=== PATIENT | female | born 1980 | race Caucasian/White ===

== ENCOUNTER 2023-11-12 07:51 | Outpatient (CLI) | payer BC, SELFPAY ==
[2023-11-12 08:20] LABS: Basophils Absolute Auto 0.1 K/mm3 (0.0-0.1); Basophils Percent Auto 1.3 % (0.2-1.2); Eosinophils Absolute Auto 0.2 K/mm3 (0-0.3); Eosinophils Percent Auto 3.2 % (0-4.4); Hematocrit 44.3 % (37.0-47.0); Hemoglobin 14.1 g/dL (12.0-15.0); Immature Granulocyte Absolute 0.02 K/mm3 (0.00-0.031); Immature Granulocyte Percent A 0.3 % (0-0.5); Lymphocytes Absolute Auto 2.15 K/mm3 (0.9-3.2); Lymphocytes Percent Auto 34.1 % (18.3-44.2); Mean Corpuscular HGB Conc 31.8 g/dl (32-36); Mean Corpuscular Hemoglobin 29.6 pg (26-34); Mean Corpuscular Volume 93.1 fl (80-100); Mean Platelet Volume 9.6 fl (7.4-10.4); Monocytes Absolute Auto 0.5 K/mm3 (0.1-0.6); Monocytes Percent Auto 7.1 % (2.6-8.5); Neutrophils Absolute Auto 3.4 K/mm3 (1.3-6.7); Platelet Count Result 232 k/mm3 (150-375); Red Blood Count 4.76 M/mm3 (4.2-5.4); Red Cell Distribution Width 12.8 % (11.5-14.5); White Blood Count 6.3 K/mm3 (4.5-10.0)
[2023-11-12 08:38] LABS: Anion Gap 4 mmol/L (4-12); Blood Urea Nitrogen 13 mg/dL (7-17); Calcium 9.1 mg/dL (8.4-10.2); Carbon Dioxide 30 mmol/L (22-30); Chloride 105 mmol/L (98-107); Cholesterol 250 mg/dL (0-200); Estimated Glomerular Filt Rate > 60; Glucose 98 mg/dL (65-110); HDL Direct 54 mg/dL; Sodium 139 mmol/L (137-145); Triglycerides 193 mg/dL (<150)
[2023-11-12 08:52] LABS: LDL Cholesterol Direct 158 mg/dL
== END 2023-11-12 07:52 | disposition home or self-care (01) ==
PROVIDERS: PCP Nurse Practitioner Family; Visit Provider Nurse Practitioner Family
DX: Z00.00 Encounter for general adult medical examination without abnormal findings (principal); D64.9 Anemia, unspecified; G43.909 Migraine, unspecified, not intractable, without status migrainosus; J45.909 Unspecified asthma, uncomplicated
CPT/HCPCS: 36415; 80048; 80061; 84443; 85025

== ENCOUNTER 2024-12-22 07:06 | Outpatient (CLI) | payer BC, SELFPAY ==
--- OUTSIDE RECORDS SUMMARY | 2024-12-22 07:09 | XMS_ITS | Encounter Summary ---
Author Organization [facility] Healthcare Address [address] [place] [address] Care Team Providers Care Sanitarian Aide Name Role Phone Magdalena Jay HOP PICKER Primary Care Provider [phone] Encounter Details Date Type Department Care Team (Late st Contact Info) Description 03/26/2024 Orders Only [facility] [place] [address] [place] [id number] Alex Null MD [address] [facility] [address] [address] Social History Tobacco Use Types Packs/Day Years Used Date Smoking Tobacco: Never Alcohol Use Standard Drinks/Week Comments Yes 0 (1 standard drink = 0.6 oz pur e alcohol) AUDIT-C Answer Date Recorded Frequency of Alcohol Consumption Monthly or less 2020 Average Number of Drinks 1 or 2 020 Frequency of Binge Drinking Never 02/12 Personal Safety Answer Date Recorded Getting School Help Needed Not on file 06/30 Comments No Sex and Gender Information Value Date Recorded Sex Assigned at Not on file 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 Gender Identity Not on file Sexual Orientation Not on file documented as of this encounter Plan of Treatment Not on file documented as of this encounter Procedures Procedure Name Priority Date/Time Associated Diagnosis Comments SCAN - RADIOLOGY/IMAGING 03/26/2024 documented in this encounter Results * SCAN - RADIOLOGY/IMAGING (03/26/2024) Anatomical Region Laterality Modality Other Alex Null MD Final R esult documented in this encounter Visit Diagnoses Not on filedocumented in this encounter Care Teams Sanitarian Aide Relationship Specialty Start Date End Date Magdalena Jay, HOP PICKER [address] [place] [address] PCP - General Family Medicine 03/26/24 documented as of this encounter
--- OUTSIDE RECORDS SUMMARY | 2024-12-22 07:09 | XMS_ITS | Referral Summary ---
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 Gender Identity Not on file Sexual Orientation Not on file Last Filed Vital Signs Vital Sign Reading Time Taken Comments Blood Pressure 130/80 03/26/2024 12:48 PM CDT Pulse 92 06/17/2018 2:32 PM MANAGER BUSINESS Temperature 37.1 C (98.7 F) 06/17/2018 2:32 PM MANAGER BUSINESS Respiratory Rate - - Oxygen Saturation 97% 06/17/2018 2:32 PM MANAGER BUSINESS Inhaled Oxygen Concentration - - Weight 78.9 kg (174 lb) 03/26/2024 12:48 PM CDT Height 170.2 cm (5' 7) 03/26/2024 12:48 PM CDT Body Mass Index 27.25 03/26/2024 12:48 PM CDT Plan of Treatment Not on file Procedures Procedure Name Priority Date/Time Associated Diagnosis Comments HIGH RISK HPV DNA DETECTION WITH GENOTYPING Routine 03/26/2024 12:54 PM CDT Well woman exam from Last 3 Months or Most Recently Relevant to Health Maintenance Results * High Risk HPV DNA Detection with Genotyping (Molecular component) (03/26/2024 12:54 PM CDT) HPV HR 16 Not Detected Not Detected [facility] Comment:Testing performed by : [facility], [address] [place]., [address] HPV HR 18 Not Detected Not Detected [facility] Comment:Testing performed by : [facility], [address] [place]., [address] HPV HR Non 16/18 Not Detected Not Detected [facility] Comment: Interpretive Data Nucleic acid amplification for detection of high-risk Human Papilloma virus (HPV) is performed by the Sumit Thania 6800 HPV test. This assay specifically detects HPV-16 and HPV-18 genotypes. The following HPV genotypes are detected as high-risk HPV: HPV-31, 33, 35, ,39, 45, 51, 52, 56, 58, 59, 66, and 68. This assay has been approved by the [place] Food and Drug Administration for detection of HPV in cervical specimens collected by a physician using an endocervical brush/spatula or cervical broom and placed in the ThinPrep Pap Test PreservCyt collection containers. The performance characteristics of this test have been verified by the [facility] Molecular Infectious Disease laboratory. Correlate with separately reported cytology results, as applicable. Interpretive data last revised 22 Testing performed by: [facility], [address] [place] [address] Endocervical 03/26/2024 12:5 4 PM CDT 03/27/2024 9:08 AM CDT Narrative [facility] - 03/27/2024 8:01 PM CDT Clinical history and diagnosis->screen, hx of LEEP Number of vials->1 Testing type->Screening Last menstrual period (date if known)->03/26/24 Menstrual status->Regular Previous positive HPV history?->Yes Previous negative PAP?->Yes Alex Null MD LAB BODY FLUIDS AND STO OLS ORDERABLES Final Result [facility] [address] [facility] [place] [address] BJ from Last 3 Months or Most Recently Relevant to Health Maintenance Insurance [employer] [place] [employer] [place] Care Teams Tire Center Supervisor Relationship Specialty Start Date End Date Magdalena Jay, CATALINA [address] [place] [address] PCP - General Family Medicine 03/26/24
--- OUTSIDE RECORDS SUMMARY | 2024-12-22 07:09 | XMS_ITS | Clinical Summary ---
Author Organization [facility] Office Center Address [address] [place] [address] Care Team Providers Care Reinforcement Maker Name Role Phone Magdalena Jay NP Primary Care Provider [phone] [phone] Allergies No known active allergies Medications norethindrone ac-eth estradioL (Loestrin 07/02, ,) 1-20 mg-mcg per tabletIndication s:Menorrhagia Take 1 tablet by mouth daily 63 tablet 3 05/21/2024 5 Active Active Problems No known active problems Surgical History Surgery Date Site/Laterality Comments CERVICAL BIOPSY W/ LOOP ELEC TRODE EXCISION 06/13/2010 - 06/12/2011 TUBAL LIGATION ARM SURGERY WISDOM TOOTH EXTRACTION Medical History Medical History Date Comments Asthma History of abnormal cervical Pap smear H/O Leep 2010 Family History Medical History Relation Name Comments Pancreatic cancer Father Liver cancer Maternal Grandfather Heart attack Maternal Grandmother Hypothyroidism Mother Breast cancer Neg Hx Ovarian cancer Neg Hx Relation Name Status Comments Father Maternal Grandfather Maternal Grandmother Mother Social History Tobacco Use Types Packs/Day Years [...] on file 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 Gender Identity Not on file Sexual Orientation Not on file Obstetrics History Para Term AB IAB SAB Ectopic Multiple Livin g Live Births 2 2 Date Outcome GA Total Labor Labor/2nd/3rd Weight Sex Type Anes PTL Ailyn A1 A5 Name Clin Para Para Comments 05/29 Last Filed Vital Signs Vital Sign Reading Time Taken Comments Blood Pressure 130/80 03/26/2024 12:48 PM CDT Pulse 92 06/17/2018 2:32 PM MINE ENGINEER Temperature 37.1 C (98.7 F) 06/17/2018 2:32 PM MINE ENGINEER Respiratory Rate - - Oxygen Saturation 97% 06/17/2018 2:32 PM MINE ENGINEER Inhaled Oxygen Concentration - - Weight 78.9 kg (174 lb) 03/26/2024 12:48 PM CDT Height 170.2 cm (5' 7) 03/26/2024 12:48 PM CDT Body Mass Index 27.25 03/26/2024 12:48 PM CDT Plan of Treatment Health Maintenance Due Date Last Done Comments Depression Screening 1981 Hepatitis C Screening 1981 Varicella Vaccines (1 of 2 - 13+ 2-dose series) 1994 Hepatitis B Screening 1999 DTaP/Tdap/Td Vaccine (2 - Td or Tdap) 09/10/2020 09/10/2010 Covid-19 Vaccine ( season) 2024 01/08/2021, 12/01/2020 Breast Cancer Screening-Mammogram 03/14/2024 03/14/2023, 03/14/2023, 03/14/2023, Additional history exists Influenza Vaccine (Season Ended) 2025 03/31/1999 Cervical Cancer Screening 03/26/20252023, 03/26/2024, 03/14/2023, Additional history exists Regular Well Visit/Exam 18-64 03/26/2025 03/26/2024, 03/14/2023, 03/08/2022, Additional history exists HPV Vaccines Aged Out No longer eligi ble based on patient's age to complete this topic Pneumococcal vaccine <65 Aged Out No longer eligible based on patient's age to complete this topic Procedures Procedure Name Priority Date/Time Associated Diagnosis Comments HIGH RISK HPV DNA DETECTION WITH GENOTYPING Routine 03/26/2024 12:54 PM CDT Well woman exam from Last 3 Months or Most Recently Relevant to Health Maintenance Results * High Risk HPV DNA Detection with Genotyping (Molecular component) (03/26/2024 12:54 PM CDT) HPV HR 16 Not Detected Not Detected [facility] Comment:Testing performed by : [facility], [address] [place]., [address] HPV HR 18 Not Detected Not Detected [facility] Comment:Testing performed by : [facility], [address] [place]., [address] HPV HR Non 16/18 Not Detected Not Detected [facility] Comment: Interpretive Data Nucleic acid amplification for [...] this test have been verified by the [facility] Molecular Infectious Disease laboratory. Correlate with separately reported cytology results, as applicable. Interpretive data last revised 22 Testing performed by: [facility], [address] [place]., [address] Endocervical 03/26/2024 12:5 4 PM CDT 03/27/2024 9:08 AM CDT Narrative [facility] ROD[facility] - 03/27/2024 8:01 PM CDT Clinical history and diagnosis->screen, hx of LEEP Number of vials->1 Testing type->Screening Last menstrual period (date if known)->03/26/24 Menstrual status->Regular Previous positive HPV history?->Yes Previous negative PAP?->Yes us Alex Null MD LAB BODY FLUIDS AND STO OLS ORDERABLES Final Result Performing Organization Address City/State/ZIP [place] Phone Number [facility] Department [place] [address] [facility] from Last 3 Months or Most Recently Relevant to Health Maintenance Insurance [employer] [place] [employer] [place] Care Teams Reinforcement Maker Relationship Specialty Start Date End Date Magdalena Jay NP [address] [place] [address] PCP - General Family Medicine 03/26/24
--- OUTSIDE RECORDS SUMMARY | 2024-12-22 07:09 | XMS_ITS | Clinical Summary ---
Author Organization [facility] Address [address] [place] [address] Care Team Providers Care Business Operations Specialist Name Role Phone None, Physician Primary Care Provider Unavailabl e Source Comments [facility],non-owned Affiliates and Associated Physician Practices is amultiple site organization consisting of ambulatory clinics and hospital sitesin [place], [place], [place] and [place]. This disclosure is being madepursuant to the Care Everywhere program and may not contain all information available regarding this patient. Last updated 03/03/18.24h00 [facility] Allergies No known active allergies Medications * Be aware that medications may not be up to date on this document. Alwaysverify current medications with the patient. moxifloxacin (Vigamox) 0.5 % ophthalmic solution 09/24/2023 Active Active Problems No known active problems Family History Medical History Relation Name Comments Glaucoma Brother Blindness Neg Hx Macular Degeneration Neg Hx Relation Name Status Comments Brother Social History Tobacco Use Types Packs/Day Years Used Date Smoking Tobacco: Never Smokeless Tobacco: Never Tobacco Cessation:Counseling Given: Not Answered Comments Unknown Sex and Gender Information Value Date Recorded Sex Assigned at Not on file Legal Sex Female 4:41 AM CDT Gender Identity Not on file Sexual Orientation Not on file Plan of Treatment Health Maintenance Due Date Last Done Comments LIPID TESTING 1981 HIV SCREENING 1996 HEPATITIS C SCREENING 03/01/1999 DTAP/TDAP/TD VACCINES (1 - Tdap) 2000 HEPATITIS B VACCINE (1 of 3 - 19+ 3-dose series) 2000 COVID-19 VACCINE (2023-2 5 season) 2024 DEPRESSION SCREENING 06/13/2024 INFLUENZA VACCINE (#1) 2025 MAMMOGRAM 03/14/2025 03/14/2023, 03/10/2022, 03/09/2021 PAP SMEAR 03/14/2026 03/14/2023, 03/14/2023 ZOSTER VACCINE (1 of 2) 2031 HIB VACCINE Aged Out No longer eligi ble based on patient's age to complete this topic HPV VACCINE Aged Out No longer eligi ble based on patient's age to complete this topic MENINGOCOCCAL (Group B) VACCINE SHARED DECISION-MAKING Aged Out No longer eligible based on patient's age to complete this topic MENINGOCOCCAL GROUPS A/C/Y/W VACCINE Aged Out No longer eligible b ased on patient's age to complete this topic PNEUMOCOCCAL VACCINE Aged Out No long er eligible based on patient's age to complete this topic Insurance Care Teams Business Operations Specialist Relationship Specialty Start Date End Date None, Physician [address] [place] [address] PCP - General 09/26/23
--- OUTSIDE RECORDS SUMMARY | 2024-12-22 07:09 | XMS_ITS | Clinical Summary ---
Author Organization [facility] Address [place] [address] Care Team Providers Care Donor Support Technician Name Role Phone Misty Magdalena Taj SUGAR CANE PLANTER MACHINE OPERATOR Primary Care Provider [phone] Allergies No known active allergies Medications cyclopentolate (CYCLOGYL) 0.5 % ophthalmic solution Place 1 drop into the right eye 2 (two) times a day. 0.1 mL 09/24/2023 Active Family History Medical History Relation Comments Breast Cancer Neg Hx Social History Tobacco Use Types Packs/Day Years Used Date Smoking Tobacco: Never Smokeless Tobacco: Never Tobacco Cessation:Counseling Given: Not Answered Alcohol Use Standard Drinks/Week Comments Not Currently 0 (1 standard drink = 0.6 oz pur e alcohol) Comments Unknown Sex and Gender Information Value Date Recorded Sex Assigned at Not on file Legal Sex Female 5:29 PM CDT Gender Identity Not on file Sexual Orientation Not on file Last Filed Vital Signs Vital Sign Reading Time Taken Comments Blood Pressure 161/107 04/18/2024 2:16 AM LYE BATH OPERATOR Pulse 90 04/18/2024 2:16 AM LYE BATH OPERATOR Temperature 37.2 C (98.9 F) 04/18/2024 2:16 AM LYE BATH OPERATOR Respiratory Rate 19 04/18/2024 2:16 AM LYE BATH OPERATOR Oxygen Saturation 100% 04/18/2024 2:16 AM LYE BATH OPERATOR Inhaled Oxygen Concentration - - Weight 77.1 kg (170 lb) 04/18/2024 2:16 AM LYE BATH OPERATOR Height 172.7 cm (5' 8) 04/18/2024 2:16 AM LYE BATH OPERATOR Body Mass Index 25.85 04/18/2024 2:16 AM LYE BATH OPERATOR Plan of Treatment Upcoming Encounters Date Type Department Care Team (Late st Contact Info) Description 03/29/2025 12:30 PM CDT Appointment [facility] Mammography [address] [place] [address] Alex Null MD [address] [place] [address] Health Maintenance Due Date Last Done Comments Annual Physical 1984 Hepatitis C 1999 Hepatitis B Vaccines (1 of 3 - 19+ 3-dose series) 2000 Cervical Cancer Screening Pap with HPV Testing (Age 30 to 64) Every 5 Years 2011 DTaP, Tdap and Td Vaccines (2 - Td or Tdap) 09/10/2020 09/10/2010 COVID-19 Vaccine (3 - season) 2024 01/08/2021, 12/01/2020 Mammogram Screening 03/26/2026 03/26/2024, 03/14/2023, 03/10/2022, Additional history exists Cervical Cancer Screening Pap Smear (Age 30 to 64) Every 3 Years 03/26/2027 03/26/2024, 03/14/2023, 03/06/2021 Cervical Cancer Screening with HPV 03/26/2027 HPV Vaccines Aged Out No longer eligi ble based on patient's age to complete this topic Meningococcal B Vaccine Aged Out No l onger eligible based on patient's age to complete this topic Meningococcal Vaccine Aged Out No damian enma eligible based on patient's age to complete this topic Pneumococcal Vaccine: Pediatrics (0 to 5 Years) and At-Risk Patients (6 to 49 Years) Aged Out No longer eligible based on patient's age to complete this topic RSV Immunizations Under 20 Months Aged Out No longer eligible based on patient's age to complete this topic Procedures Procedure Name Priority Date/Time Associated Diagnosis Comments MG SCREENING W NICOLA FREDI DIGI Routine 03/26/2024 8:26 AM CDT Encounter for screening mammogram for malignant neoplasm of breast from Last 3 Months or Most Recently Relevant to Health Maintenance Results * MG SCREENING W NICOLA FREDI DIGI (03/26/2024 8:26 AM CDT) Anatomical Region Laterality Modality Breast Bilateral Mammography 03/27/2024 1:20 PM CDT Impressions 03/27/2024 1:30 PM CDT ===== IMPRESSION: ===== 1. Stable mammographic appearance with no new findings to suggest malignancy in either breast. Assessment: ACR BI-RADS 2 - BENIGN FINDING(S) Recommendation: 1:Routine Screening Bilateral Comments: Ordered By: ALEX NULL Interpreted By: Dale Davies, 03/27/2024 1:20 PM Narrative 03/27/2024 1:30 PM CDT [facility] [address] [place] [address] EXAMINATION: Digital bilateral screening mammogram with 3-D tomosynthesis EXAM DATE/TIME: 03/26/2024 8:00 AM REASON FOR EXAM: Routine screening COMPARISON: 03/10/2022. March 14, 2023 Technique: Digital screening mammography of both breasts was performed in addition to 3-D Tomosynthesis technique. This study was read with the assistance of a computer-aided detection system. Tissue density: There are scattered areas of fibroglandular density. Findings: There is no new focal asymmetry, dominant mass lesion, area of skin thickening, or cluster of suspicious appearing calcifications in either breast to suggest malignancy. us Alex Null MD MAMMO Final Resu lt from Last 3 Months or Most Recently Relevant to Health Maintenance Insurance [facility] Care Teams Donor Support Technician Relationship Specialty Start Date End Date Magdalena Jay, SUGAR CANE PLANTER MACHINE OPERATOR [address] [place] [address] PCP - General Nurse Practitioner Family 04/18/24
[2024-12-22 08:08] LABS: Anion Gap 9 mmol/L (4-12); Blood Urea Nitrogen 13 mg/dL (7-17); Calcium 9.1 mg/dL (8.4-10.2); Carbon Dioxide 25 mmol/L (22-30); Chloride 105 mmol/L (98-107); Cholesterol 285 mg/dL (0-200); Estimated Glomerular Filt Rate > 60; Glucose 98 mg/dL (65-110); HDL Direct 53 mg/dL; Potassium 4.2 mmol/L (3.4-5.0); Sodium 139 mmol/L (137-145); Triglycerides 181 mg/dL (<150)
[2024-12-22 08:16] LABS: Hematocrit 43.2 % (37.0-47.0); Hemoglobin 14.2 g/dL (12.0-15.0); Immature Granulocyte Percent A 0.9 % (0-0.5); Lymphocytes Absolute Auto 2.36 K/mm3 (0.9-3.2); Mean Corpuscular HGB Conc 32.9 g/dl (32-36); Mean Corpuscular Hemoglobin 30.1 pg (26-34); Mean Corpuscular Volume 91.5 fl (80-100); Nucleated Red Blood Cells Absolute Auto 0.000 K/mm3 (0.0-0.012); Nucleated Red Blood Cells Perc 0.0 % (0.0-0.2); Platelet Count Result 249 k/mm3 (150-375); Red Blood Count 4.72 M/mm3 (4.2-5.4); White Blood Count 5.9 K/mm3 (4.5-10.0)
[2024-12-22 08:44] LABS: Thyroid Stimulating Hormone 3.950 uIU/mL (0.465-4.680)
== END 2024-12-22 07:07 | disposition home or self-care (01) ==
LOC: ANHLAB 07:07
PROVIDERS: PCP Nurse Practitioner Family; Visit Provider Nurse Practitioner Family
DX: Z00.00 Encounter for general adult medical examination without abnormal findings (principal)
CPT/HCPCS: 36415; 80048; 80061; 84443; 85025